=== PATIENT | female | born 1985 | race Caucasian/White ===

== ENCOUNTER 2018-05-09 12:53 | Emergency (ER) | payer SELFPAY ==
[~2018-05-09] VITALS: Ht 165.1 cm; Wt 137.0 kg
[~2018-05-09 12:53] MED LIST: AGM875T PO; DOCU100C37 PO; HYDR-3454 PO; HYDR1TAB75 PO; IBP800T PO; IBUP-1780 PO; NITR-65 PO; ONDA4TAB8 PO; OXYC-465 PO; PREN1TAB39 PO; PREN1TAB86 PO; PRM25T PO; RANI150T46 PO; TRAM50TA2 PO
--- OUTSIDE RECORDS SUMMARY | 2018-05-09 12:57 | XMS REPORT | Continuity of Care Document ---
Author Author [facility] Address Unknown Phone Unavailable Allergies Active Description Code Type Severity Reaction Onset Reported/Identified Relationship to Patient Clinical Status Yes Amoxicillin Drug Allergy 07/28/2011 Yes Amoxicillin Drug Allergy N/A N/A 07/28/2011 Medications There is no data. Problems Date Dx Coded Attending Type Code Diagnosis Diagnosed By 07/22/2008 616.10 VAGINITIS 07/22/2008 V25.41 visit for: contraceptive surveillance pill 07/22/2008 V72.31 Pelvic Exam ( Internal) 07/22/2008 ALICE GAMBINO MD 616.10 VAGINITIS 07/22/2008 ALICE GAMBINO MD V25.41 visit for: contraceptive surveillance pill 07/22/2008 ALICE GAMBINO MD V72.31 Pelvic Exam (Internal) 07/22/2008 616.10 VAGINITIS 07/22/2008 V25.41 visit for: contraceptive surveillance pill 07/22/2008 V72.31 Pelvic Exam ( Internal) 07/22/2008 MADL HR INTERN, BOLIVAR L 616.10 VAGINITIS 07/22/2008 MADL HR INTERN, BOLIVAR L V25.41 visit for: contraceptive surveillance pill 07/22/2008 MADL HR INTERN, BOLIVAR L V72.31 Pelvic Exam (Internal) 07/22/2008 MADL HR INTERN, BOLIVAR L 616.10 VAGINITIS 07/22/2008 MADL HR INTERN, BOLIVAR L V25.41 visit for: contraceptive surveillance pill 07/22/2008 MADL HR INTERN, BOLIVAR L V72.31 Pelvic Exam (Internal) 07/22/2008 DIANA DO DO 616.10 VAGINITIS 07/22/2008 DIANA DO DO V25.41 visit for: contraceptive surveillance pill 07/22/2008 DIANA DO DO V72.31 Pelvic Exam (Internal) 08/10/2008 278.01 OBESITY MORBID BMI >40 08/10/2008 ALICE GAMBINO MD 278.01 OBESITY MORBID BMI >40 08/10/2008 278.01 OBESITY MORBID BMI >40 08/10/2008 ERICA HR INTERNDEYANIRABOLIVAR L 278.01 OBESITY MORBID BMI >40 08/10/2008 ERICA HR INTERN, BOLIVAR L 278.01 OBESITY MORBID BMI >40 08/10/2008 LUIS DO DOA K 278.01 OBESITY MORBID BMI >40 05/28/2009 724.2 lower back pain 05/28/2009 ALICE GAMBINO MD 724.2 lower back pain 05/28/2009 724.2 lower back pain 05/28/2009 BOLIVAR MALDONADO APRN L 724.2 lower back pain 05/28/2009 GRANT MALDONADO APRNA L 724.2 lower back pain 05/28/2009 DIANA DO DO 724.2 BACK PAIN, LOWER 11/25/2009 788.41 URINARY FREQUENCY 11/25/2009 V25.40 CONTRACEPTIVE SURVEILLANCE UNSPECIFIED 11/25/2009 ALICE GAMBINO MD 788.41 URINARY FREQUENCY 11/25/2009 ALICE GAMBINO MD V25.40 CONTRACEPTIVE SURVEILLANCE UNSPECIFIED 11/25/2009 788.41 URINARY FREQUENCY 11/25/2009 V25.40 CONTRACEPTIVE SURVEILLANCE UNSPECIFIED 11/25/2009 GRANT MALDONADO APRNA L 788.41 URINARY FREQUENCY 11/25/2009 ERICA HR INTERNDEYANIRA MichaelsBOLIVAR L V25.40 CONTRACEPTIVE SURVEILLANCE UNSPECIFIED 11/25/2009 JORDYN MALDONADO APRNNYA L 788.41 URINARY FREQUENCY 11/25/2009 JORDYN MALDONADO APRNNYA L V25.40 CONTRACEPTIVE SURVEILLANCE UNSPECIFIED 11/25/2009 LUIS DO DOA K 788.41 URINARY FREQUENCY 11/25/2009 DIANA DO DO K V25.40 CONTRACEPTIVE SURVEILLANCE UNSPECIFIED 03/18/2010 V16.3 FAM HX CANCER , BREAST 03/18/2010 V76.10 BREAST SCREENING, UNSPECIFIED 03/18/2010 ALICE GAMBINO MD V16.3 FAM HX CANCER, BREAST 03/18/2010 ALICE GAMBINO MD V76.10 BREAST SCREENING, UNSPECIFIED 03/18/2010 V16.3 FAM HX CANCER , BREAST 03/18/2010 V76.10 BREAST SCREENING, UNSPECIFIED 03/18/2010 MADL HR INTERN, BOLIVAR L V16.3 FAM HX CANCER, BREAST 03/18/2010 MADL HR INTERN, BOLIVAR L V76.10 BREAST SCREENING, UNSPECIFIED 03/18/2010 MADL HR INTERN, BOLIVAR L V16.3 FAM HX CANCER, BREAST 03/18/2010 MADL HR INTERN, BOLIVAR L V76.10 BREAST SCREENING, UNSPECIFIED 03/18/2010 DO DO DIANA K V16.3 FAM HX CANCER, BREAST 03/18/2010 DO DO DIANA K V76.10 BREAST SCREENING, UNSPECIFIED 07/28/2011 921.2 CONTUSION WITH INTACT SKIN SURFACE - RIGHT INFRAORBITAL AREA 07/28/2011 ALICE GAMBINO MD 921.2 CONTUSION WITH INTACT SKIN SURFACE - RIGHT INFRAORBITAL AREA 07/28/2011 921.2 CONTUSION WITH INTACT SKIN SURFACE - RIGHT INFRAORBITAL AREA 07/28/2011 DEYANIRA MALDONADO APRNWNYA L 921.2 CONTUSION WITH INTACT SKIN SURFACE - RIGHT INFRAORBITAL AREA 07/28/2011 ERICA CHOI, BOLIVAR L 921.2 CONTUSION WITH INTACT SKIN SURFACE - RIGHT INFRAORBITAL AREA 07/28/2011 HI BENTON DIANA K 921.2 CONTUSION WITH INTACT SKIN SURFACE - RIGHT INFRAORBITAL AREA 03/06/2012 278.00 OBESITY 03/06/2012 305.1 NICOTINE DEPENDENCE 03/06/2012 V25.9 Gynecologic Services Contraceptive Management 03/06/2012 ALICE GAMBINO MD 278.00 OBESITY 03/06/2012 ALICE GAMBINO MD 305.1 NICOTINE DEPENDENCE 03/06/2012 ALICE GAMBINO MD V25.9 Gynecologic Services Contraceptive Management 03/06/2012 278.00 OBESITY 03/06/2012 305.1 NICOTINE DEPENDENCE 03/06/2012 V25.9 Gynecologic Services Contraceptive Management 03/06/2012 JORDYN MALDONADO APRNNYA L 278.00 OBESITY 03/06/2012 ERICA CHOI BOLIVAR L 305.1 NICOTINE DEPENDENCE 03/06/2012 ERICA COHI BOLIVAR L V25.9 Gynecologic Services Contraceptive Management 03/06/2012 ERICA CHOI BOLIVAR L 278.00 OBESITY 03/06/2012 ERICA CHOI, BOLIVAR L 305.1 NICOTINE DEPENDENCE 03/06/2012 ESTEBANL HR INTERN, BOLIVAR L V25.9 Gynecologic Services Contraceptive Management 03/06/2012 HI BENTON DIANA K 278.00 OBESITY 03/06/2012 HI BENTON DIANA K 305.1 NICOTINE DEPENDENCE 03/06/2012 HI BENTON DIANA K V25.9 Gynecologic Services Contraceptive Management 03/19/2014 ESTEBANL JORDYN CHOINYA L 278.02 OVERWEIGHT 03/19/2014 MADL HR INTERN, BOLIVAR L 724.5 BACK PAIN, GENERAL 03/19/2014 MADL HR INTERN, BOLIVAR L 780.79 OTHER MALAISE AND FATIGUE 03/19/2014 ESTEBANL HR INTERN, BOLIVAR L 278.02 OVERWEIGHT 03/19/2014 MADL HR INTERN, BOLIVAR L 724.5 BACK PAIN, GENERAL 03/19/2014 MADL HR INTERN, BOLIVAR L 780.79 OTHER MALAISE AND FATIGUE 03/19/2014 LUIS DO DOA K 278.02 OVERWEIGHT 03/19/2014 DO DO DIANA K 724.5 BACK PAIN, GENERAL 03/19/2014 DO DO, DIANA K 780.79 OTHER MALAISE AND FATIGUE 04/02/2014 JORDYN MALDONADO APRNNYA L 268.9 UNSPECIFIED VITAMIN D DEFICIENCY 04/02/2014 ESTEBANL JIMBO, BOLIVAR L 716.90 ARTHRITIS/ ARTHROPATHY, UNSPECIFIED 04/02/2014 HI BENTON DIANA K 268.9 UNSPECIFIED VITAMIN D DEFICIENCY 04/02/2014 HI BENTON DIANA K 716.90 ARTHRITIS/ ARTHROPATHY, UNSPECIFIED 08/11/2014 HI BENTON DIANA K 626.4 IRREGULAR MENSTRUAL CYCLE 08/11/2014 HI BENTON DIANA K 788.1 DYSURIA Procedures Code [place] [address] URINE TEST (IN- HOUSE) 03/06/2012 24292 URINE DRUG SCREEN (IN-HOUSE ) 12/12/2012 21106 ROUTINE VENIPUNCTURE 03/19/2014 97630 XRAY THORACIC SPINE 2 VIEWS 03/19/2014 29752 XRAY LUMBAR SPINE 2 OR 3 VIEWS 03/19/2014 24105 AMERITOX 03/19/20147167904 GFR CALC (RESULT ONLY) 03/19/2014 60443 CMP 03/19/2014 60364 LIPID PANEL 03/19/2014 36584 CBC 03/19/2014 83191 TSH 03/19/2014 24891 VITAMIN D 25-HYDROXY (D2,D3 , TOTAL) 03/19/2014 82645 TEST, URINE (IN- HOUSE) 08/11/2014 90286 UA W/ CULTURE IF INDICATED 08/11/2014 72673 CULTURE URINE 08/11/2014 Results There is no data. Encounters ACCT No. Visit Date/Time Discharge Status Pt. Type Provider Facility Loc./Unit Complaint [id number] 08/11/2014 16:01:00 08/11/2014 23:59:59 CLS Outpatient DINAA DO DO [id number] 04/02/2014 15:52:00 04/02/2014 23:59:59 CLS Outpatient BOLIVAR MALDONADO APRN [id number] 03/19/2014 09:52:00 03/19/2014 23:59:59 CLS Outpatient BOLIVAR MALDONADO APRN [id number] 03/06/2012 10:58:00 03/06/2012 23:59:59 [place] [id number] 03/06/2012 10:58:00 03/06/2012 23:59:59 CLS Outpatient [id number] 12/12/2012 09:31:00 Document Registration [email or web address] 03/19/2014 11:38:32 ACT Document Registration
[2018-05-09] MEDS ORDERED: SERT100T PO (13:02)
--- NOTE | 2018-05-09 13:37 | ED Lower Extremity ---
General Chief Complaint: Lower Extremity Stated Complaint: KNEE INJ Nursing Triage Note: AMBULATED TO TRIAGE LIMPING ON RIGHT LEG WITH A WALKER. THINKS SHE HYPEREXTENDED IT LAST NIGHT WHILE MOVING A FREEZER. IBUPROFEN 800MG PO TAKEN AT 0845 TODAY. Nursing Sepsis Screen: No Definite Risk History of Present Illness Date Seen by Provider: May 09, 2018 Time Seen by Provider: 13:20 Initial Comments 33-year-old female presents for right knee pain. She states last evening she was helping move a deep freezer and sustained a slight hyperextension injury to her right knee. She reports the right knee buckled, then she felt a pop in her knee. She had difficulty ambulating this morning. She presents using a walker. She denies any previous history of injuries to her right knee. She has had ibuprofen 800 mg earlier this morning. Onset: yesterday Pain/Injury Location: right thigh Method of Injury: other Allergies and Home Medications Allergies Coded Allergies: amoxicillin (Verified Allergy, Intermediate, HIVES, 10/25/10) Home Medications Sertraline HCl 100 Mg Tablet, 100 MG PO DAILY, (Reported) Patient Home Medication List Home Medication List Reviewed: Yes Review of Systems Constitutional: no symptoms reported, see HPI Musculoskeletal: see HPI, joint pain (right knee) All Other Systems Reviewed Negative Unless Noted: Yes Past Imnbnjs-Cilmfv-Wtotdt Hx Past Med/Social Hx: Reviewed Nursing Past Med/Soc Hx Patient Social History Alcohol Use: Denies Use Recreational Drug Use: No Smoking Status: Former Smoker Type Used: Cigarettes Former Smoker, Quit: Nov 16, 2013 Recent Foreign Travel: No Contact w/Someone Who Travel: No Recent Infectious Disease Expo: No Recent Hopitalizations: No Immunizations Up To Date Tetanus Booster (TDap): More than 5yrs Seasonal Allergies Seasonal Allergies: Yes Past Medical History Surgeries: Yes (TONSILECTOMY) Adenoidectomy, Appendectomy, Hysterectomy, Open Heart Surgery, Tonsillectomy Respiratory: No Cardiac: No Neurological: No : No Reproductive Disorders: Yes (Polycystic ovarian syndrome) Female Reproductive Disorders: Polycystic Ovarian Dis NEGATIVE RESTORER History: Hysterectomy Sexually Transmitted Disease: Yes (HPV) Genitourinary: No Gastrointestinal: No Musculoskeletal: No Endocrine: No HEENT: No Cancer: No Psychosocial: No Anxiety Integumentary: No Blood Disorders: No Adverse Reaction/Blood Tranf: No Family Medical History Asthma (Sister) Diabetes mellitus (Mother) FH: breast cancer Maternal Aunt, Onset:Unknown Maternal Uncle, Onset:Unknown FH: lung cancer FH: throat cancer 19 MOTHER, Onset:Unknown Hypertension (Mother) Physical Exam Vital Signs Vital Signs - First Documented 05/09/18 05/09/18 12:57 14:33 Temp 96.8 Pulse 74 Resp 16 B/P (MAP) 141/77 (98) Pulse Ox 97 O2 Delivery Room Air Capillary Refill : Less Than 3 Seconds Height, Weight, BMI Height: 5'5.00" Weight: 302lbs. 0.0oz. 136.549288tg; 58.1 BMI Method:Stated General Appearance: WD/WN, no apparent distress Cardiovascular: normal peripheral pulses, regular rate, rhythm, no edema, no murmur Respiratory: chest non-tender, lungs clear, normal breath sounds Knees: right knee normal inspection, right knee no evidence of injury, right knee joint effusion (mild), right knee soft tissue tenderness (generalized right knee), right knee other (range of motion 0-40, no medial or lateral laxity, negative Joseline and anterior/posterior drawer. Neurovascular status intact right lower chin asymmetric with the left) Neurologic/Psychiatric: no motor/sensory deficits, alert, normal mood/affect, oriented x 3 Progress/Results/Core Measures Results/Orders My Orders Orders - THERESA MONTERO Knee, Right, 3 Views (05/09/18 13:20) Acetaminophen Tablet/Caplet (Tylenol T (05/09/18 14:12) Vital Signs/I&O 05/09/18 05/09/18 12:57 14:33 Temp 96.8 Pulse 74 65 Resp 16 16 B/P (MAP) 141/77 (98) 112/64 (80) Pulse Ox 97 98 O2 Delivery Room Air Blood Pressure Mean: 98 Diagnostic Imaging Diagonstic Imaging: Xray Plain Films/CT/US/NM/MRI: knee Comments NAME: [facility] REC#: [id number] PT STATUS: REG ER : 1985 PHYSICIAN: THERESA MONTERO ADMIT DATE: 05/09/18/ER Draft Date of Exam:05/09/18 KNEE, RIGHT, 3 VIEWS INDICATION: Painful limitations in range of motion FINDINGS: No fracture, dislocation, loose body or malalignment. The articular surface is smooth. No joint effusion. IMPRESSION: Unremarkable three-view right knee. Dictated on workstation # [id number] Dict: 05/09/18 1357 Trans: 05/09/18 1400 [facility] [id number] Interpreted by: ALICIA IZAGUIRRE Electronically signed by: Reviewed: Reviewed by Me Departure Impression Primary Impression: Right knee pain Qualified Codes: M25.561 - Pain in right knee Disposition: HOME, SELF-CARE Condition: Stable Departure-Patient Inst. Decision time for Depature: 14:00 Referrals: ABDIRAHMAN RIBERA MD (PCP/Family) Primary Care Physician Patient Instructions: Knee Sprain (DC) Add. Discharge Instructions: Ice to right knee 20 minutes every 2 hours while awake. Alternate between ibuprofen 800 mg and Tylenol 650 mg every 4 hours for pain and swelling. Use walker as needed, weightbearing as tolerated on right lower extremity. David wrap to assist with swelling. Follow-up with your primary care provider if symptoms are not improving or worsen over the next 2-3 days or for orthopedic referral. Return to emergency department for new, urgent health care needs. All discharge instructions reviewed with patient and/or family. Voiced understanding. Work/School Note: Work Release Form Date Seen in the Emergency Department: May 09, 2018 Return to Work: May 11, 2018 Other Restrictions Listed Below: Light duty. THERESA MONTERO May 09, 2018 13:37
--- NOTE | 2018-05-09 14:01 | Diagnostic Imaging Report ---
INDICATION: Painful limitations in range of motion FINDINGS: No fracture, dislocation, loose body or malalignment. The articular surface is smooth. No joint effusion. IMPRESSION: Unremarkable three-view right knee. Dictated by: Dictated on workstation # [id number]
[2018-05-09] MEDS ORDERED: ACETAMINOPHEN 325 MG TABLET PO STA (14:12)
[2018-05-09 14:33] VITALS: BP 112/64
== END 2018-05-09 14:33 | disposition home or self-care (01) ==
LOC: EDUNIT# 12:53 → ER 12:54
DX: M25.561 Pain in right knee (principal); F41.9 Anxiety disorder, unspecified; Z88.0 Allergy status to penicillin; Z87.891 Personal history of nicotine dependence; Z80.1 Family history of malignant neoplasm of trachea, bronchus and lung; Z80.3 Family history of malignant neoplasm of breast; Z90.49 Acquired absence of other specified parts of digestive tract; Z90.89 Acquired absence of other organs; Z90.710 Acquired absence of both cervix and uterus; Z87.448 Personal history of other diseases of urinary system; Z86.19 Personal history of other infectious and parasitic diseases; X50.1XXA Overexertion from prolonged static or awkward postures, initial encounter
CPT/HCPCS: 73562

== ENCOUNTER 2018-09-03 14:16 | Outpatient (RCR) | payer MEDICAID ==
[~2018-09-03 14:16] MED LIST changes: +SERT100T PO
== END 2018-10-01 16:03 | disposition home or self-care (01) ==
PROVIDERS: ATTEND Orthopaedic Surgery
DX: M23.611 Other spontaneous disruption of anterior cruciate ligament of right knee (principal)